=== PATIENT | female | born 1950 | race Caucasian/White ===

== ENCOUNTER → 2016-09-27 | Outpatient (CLI) | payer MEDICARE ==
[~2016-09-27] MED LIST: CLARITIN10 MG PO; DAYPRO600 M1 PO; LEVBID0.375 MG PO; NORGESIC FORTE PO; PRILOSEC20 M1 PO; ROBINUL1 MG; SKELAXIN800 MG PO; ZITHROMAX Z PA250 MG PO
[2016-09-27 08:04] LABS: BASO # 0.1 10*3/uL (0.0-0.1); EOS # 0.1 10*3/uL (0.0-0.4); EOS % 2.1 % (1.0-4.0); HEMATOCRIT 40.5 % (37.0-47.0); HEMOGLOBIN 12.8 g/dl (12.0-16.0); LYMPH # 2.7 10*3/uL (1.3-4.4); LYMPH % 55.8 % (27.0-41.0); MEAN CELL VOLUME 92.7 fl (81.0-99.0); MEAN CORPUSCULAR HGB 29.3 pg (27.0-31.0); MEAN CORPUSCULAR HGB CONC 31.6 g/dl (33.0-37.0); MONO # 0.5 10*3/uL (0.1-1.0); MONO % 9.9 % (3.0-9.0); NEUT # 1.5 10*3/uL (2.3-7.9); PLATELET COUNT AUTOMATED 197 10*3/uL (130-400); RED BLOOD COUNT 4.37 10*6/uL (4.10-5.10); RED CELL DISTRI WIDTH 13.7 % (0-14.5); WHITE BLOOD COUNT 4.8 10*3/uL (4.8-10.8)
[2016-09-27 08:26] LABS: CHLORIDE 111 mmol/L (98-107); POTASSIUM 4.1 mmol/L (3.5-5.1); SODIUM 146 mmol/L (136-145)
[2016-09-27 08:42] LABS: ALBUMIN 3.6 gm/dl (3.1-4.5); ALKALINE PHOSPHATASE 44 U/L (45-117); BILIRUBIN, TOTAL 0.4 mg/dl (0.2-1.0); BUN 19 mg/dl (7-24); CARBON DIOXIDE 28 mmol/L (21-32); CHOLESTEROL 236 mg/dL (<200); EST GLOM FILT AFRICAN AMERICAN > 60 ml/min; GLUCOSE 94 mg/dL (65-99); HDL CHOLESTEROL 78 mg/dl (40-60); LDL CHOLESTEROL 127 mg/dL (9-159); SGOT/AST 9 IU/L (3-35); SGPT/ALT 24 U/L (12-78); TOTAL PROTEIN 6.3 gm/dL (6.4-8.2); TRIGLYCERIDES 154 mg/dl (<150); VLDL CHOLESTEROL 31 mg/dL (6-40)
== END | disposition home or self-care (01) ==
LOC: LAB 07:26
PROVIDERS: Internal Medicine
DX: E78.00 Pure hypercholesterolemia, unspecified (principal); E55.9 Vitamin D deficiency, unspecified

== ENCOUNTER → 2017-03-14 | Outpatient (CLI) | payer MEDICARE | END | disposition home or self-care (01) | LOC: MAMMO 07:11 | DX: Z12.31 Encounter for screening mammogram for malignant neoplasm of breast (principal) ==

== ENCOUNTER → 2017-04-02 | Outpatient (CLI) | payer MEDICARE ==
[2017-04-02 09:39] LABS: BASO # 0.1 10*3/uL (0.0-0.1); BASO % 1.2 % (0.0-1.0); EOS # 0.1 10*3/uL (0.0-0.4); EOS % 1.6 % (1.0-4.0); HEMATOCRIT 43.4 % (37.0-47.0); HEMOGLOBIN 13.8 g/dl (12.0-16.0); LYMPH # 2.7 10*3/uL (1.3-4.4); LYMPH % 53.8 % (27.0-41.0); MEAN CELL VOLUME 90.8 fl (81.0-99.0); MEAN CORPUSCULAR HGB 28.9 pg (27.0-31.0); MEAN CORPUSCULAR HGB CONC 31.8 g/dl (33.0-37.0); MEAN PLATELET VOLUME 10.6 fl (9.6-12.3); MONO # 0.4 10*3/uL (0.1-1.0); MONO % 7.5 % (3.0-9.0); NEUT # 1.8 10*3/uL (2.3-7.9); NEUT % 35.7 % (47.0-73.0); PLATELET COUNT AUTOMATED 226 10*3/uL (130-400); RED BLOOD COUNT 4.78 10*6/uL (4.10-5.10); RED CELL DISTRI WIDTH 13.4 % (0-14.5)
[2017-04-02 10:13] LABS: ALBUMIN 3.8 gm/dl (3.1-4.5); ALKALINE PHOSPHATASE 51 U/L (45-117); BUN 13 mg/dl (7-24); CHLORIDE 106 mmol/L (98-107); CHOLESTEROL 254 mg/dL (<200); CREATININE 0.83 mg/dL (0.55-1.02); HDL CHOLESTEROL 82 mg/dl (40-60); LDL CHOLESTEROL 139 mg/dL (9-159); SGOT/AST 12 IU/L (3-35); SGPT/ALT 32 U/L (12-78); SODIUM 141 mmol/L (136-145); TOTAL PROTEIN 6.9 gm/dL (6.4-8.2); TRIGLYCERIDES 164 mg/dl (<150); VLDL CHOLESTEROL 33 mg/dL (6-40)
== END | disposition home or self-care (01) ==
LOC: LAB 09:24
PROVIDERS: Internal Medicine
DX: E55.9 Vitamin D deficiency, unspecified (principal); E78.00 Pure hypercholesterolemia, unspecified

== ENCOUNTER → 2017-08-08 | Outpatient (CLI) | payer MEDICARE ==
[2017-08-08 07:46] LABS: BASO # 0.1 10*3/uL (0.0-0.1); BASO % 1.1 % (0.0-1.0); EOS # 0.1 10*3/uL (0.0-0.4); EOS % 2.3 % (1.0-4.0); HEMATOCRIT 42.2 % (37.0-47.0); HEMOGLOBIN 13.2 g/dl (12.0-16.0); LYMPH % 57.5 % (27.0-41.0); MEAN CELL VOLUME 91.7 fl (81.0-99.0); MEAN CORPUSCULAR HGB 28.7 pg (27.0-31.0); MEAN CORPUSCULAR HGB CONC 31.3 g/dl (33.0-37.0); MEAN PLATELET VOLUME 10.9 fl (9.6-12.3); MONO # 0.5 10*3/uL (0.1-1.0); MONO % 9.3 % (3.0-9.0); NEUT # 1.6 10*3/uL (2.3-7.9); NEUT % 29.6 % (47.0-73.0); PLATELET COUNT AUTOMATED 206 10*3/uL (130-400); RED CELL DISTRI WIDTH 14.2 % (0-14.5); WHITE BLOOD COUNT 5.3 10*3/uL (4.8-10.8)
[2017-08-08 08:24] LABS: ALBUMIN 3.6 gm/dl (3.1-4.5); BUN 17 mg/dl (7-24); CHLORIDE 108 mmol/L (98-107); POTASSIUM 4.2 mmol/L (3.5-5.1); SODIUM 142 mmol/L (136-145)
[2017-08-08 08:35] LABS: ALKALINE PHOSPHATASE 44 U/L (45-117); CHOLESTEROL 248 mg/dL (<200); CREATININE 0.93 mg/dL (0.55-1.02); HDL CHOLESTEROL 75 mg/dl (40-60); LDL CHOLESTEROL 146 mg/dL (9-159); SGOT/AST 9 IU/L (3-35); SGPT/ALT 27 U/L (12-78); TOTAL PROTEIN 6.5 gm/dL (6.4-8.2); TRIGLYCERIDES 134 mg/dl (<150); VLDL CHOLESTEROL 27 mg/dL (6-40)
== END | disposition home or self-care (01) ==
LOC: LAB 07:21
PROVIDERS: Internal Medicine
DX: E78.00 Pure hypercholesterolemia, unspecified (principal); E55.9 Vitamin D deficiency, unspecified

== ENCOUNTER → 2017-12-10 | Outpatient (CLI) | payer MEDICARE | END | disposition home or self-care (01) | LOC: RAD 14:53 | DX: J43.9 Emphysema, unspecified (principal); Z87.891 Personal history of nicotine dependence ==

== ENCOUNTER → 2018-06-12 | Outpatient (CLI) | payer MEDICARE | END | disposition home or self-care (01) | LOC: MAMMO 09:57 | DX: Z12.31 Encounter for screening mammogram for malignant neoplasm of breast (principal) ==

== ENCOUNTER → 2018-08-07 | Outpatient (CLI) | payer MEDICARE ==
[~2018-08-07] MED LIST changes: +PHAZYME180 MG PO; +RANITIDINE HCL150 M1 PO; +VALTREX500 MG PO; +VITAMIN D400 I1 PO
== END | disposition home or self-care (01) ==
LOC: RAD 11:14
DX: M25.531 Pain in right wrist (principal)

== ENCOUNTER → 2018-12-16 | Outpatient (CLI) | payer MEDICARE | END | disposition home or self-care (01) | LOC: RAD 11:41 | DX: J44.9 Chronic obstructive pulmonary disease, unspecified (principal); K21.9 Gastro-esophageal reflux disease without esophagitis ==

== ENCOUNTER → 2018-12-31 | Outpatient (CLI) | payer MEDICARE ==
--- NOTE | ~2018-12-31 | HM ---
[place], [place] HOLTER MONITOR REPORT NAME: RONAL FUENTES UNIT #: [id number] ROOM: DOCTOR: PATY VANCE MD BIRTHDATE: [birth year] DOS: 01/01/2019 24-HOURS HOLTER MONITOR REPORT DATE OF TESTIN12/31/2018 DATE OF ANALYSIS: 01/01/2019 DATE OF REPORTIN01/01/2019 REASON FOR TESTING: Chest pain and shortness of breath. ATTENDING PHYSICIAN/ORDERING PHYSICIAN: Dr. Lai Mendoza. IMPRESSION: Monitor time 23 hours 59 minutes. The average heart rate was 75 beats per minute. The minimum heart rate was 50 beats per minute, occurring at 4:15 a.m. The maximum heart rate was 130 beats per minute, occurring at 12:58 p.m. There was one ventricular ectopic activity noted. The patient's rhythm included 6 hours and 48 minutes of bradycardia, the lowest single episode of bradycardia occurred at 4:12 a.m. lasting about 23 minutes with a minimum heart rate of 50 beats per minute. The patient's rhythm included 2 hours and 59 minutes of tachycardia. The fastest single episode of tachycardia occurred at 12:58 p.m. lasting about 1 minute and 27 seconds with a maximum heart rate of 130 beats per minute. There were 66 beats of supraventricular ectopic activity was noted, 3 were in one run, 4 were in atrial couplets, 56 were single premature atrial complex, and 3 were in trigeminy. No significant pauses were noted. The patient's symptoms of dizziness and shortness of breath correlated with a sinus tachycardia. No abnormal rhythm was noted with the patient's symptoms of dizziness and shortness of breath. Paty Vance MD CM:HOLTER:HOLTER MONITOR REPORT [id number] PATY VANCE MD
== END | disposition home or self-care (01) ==
LOC: CARD 09:47
DX: K21.9 Gastro-esophageal reflux disease without esophagitis (principal); R07.9 Chest pain, unspecified; R06.02 Shortness of breath

== ENCOUNTER → 2019-02-27 | Day surgery (SDC) | payer MEDICARE ==
[~2019-02-27] VITALS: Ht 147.3 cm; Wt 49.9 kg
[~2019-02-27] MED LIST changes: +PANTOPRAZOLE SO40 MG PO
--- NOTE | ~2019-02-27 | PROC NOTE ---
[place], [place] PROCEDURE NOTE NAME[id number] UNIT #: [id number] ROOM: DOCTOR: NAKUL HERNANDES,GABINO BIRTHDATE: [birth year] DOS: PROCEDURE: Esophagogastroduodenoscopy and biopsy. INDICATION: GERD. An informed consent was obtained from the patient after indication of procedure, the alternatives and potential complications were explained to her. PROCEDURE MEDICATION: Sedation was administered by Anesthesiology Department. Scope used was Olympus diagnostic adult upper endoscope GIF-180, depth of insertion was to the descending duodenum. FINDINGS: After adequate sedation, the patient was placed in left lateral decubitus position, scope was introduced under direct visualization through the upper esophageal sphincter into the esophagus. Esophageal mucosa appeared normal with no evidence of ulcerations or strictures. Lower esophageal sphincter was identified at 36 cm from incisors with normal appearing Z line. Stomach was then intubated. Gastric mucosa inspected. Severe gastritis was seen with no discrete ulcers or active bleeding. A SHAYY test was performed from the gastric antrum and body. Retroflexed views of the fundus showed a grade 1 small hiatal hernia. Pylorus was intubated easily. The duodenal bulb and descending duodenum were within normal range. Scope was then withdrawn after the stomach was decompressed. The patient tolerated the procedure well. IMPRESSION: 1. Small hiatal hernia. 2. Severe gastritis, SHAYY test performed. 3. Normal upper GI tract, otherwise. PLAN: We will review the SHAYY test results, treat the patient accordingly. Office followup will be scheduled in 2-3 weeks. GABINO MOTA MD CM:PROCNOTE:PROCEDURE NOTE 4 35 GABINO MOTA MD
[2019-02-27 08:02] VITALS: BP 158/58
[2019-02-27 09:05] VITALS: BP 144/56
[2019-02-27 09:15] VITALS: BP 138/57
[2019-02-27 09:32] VITALS: BP 148/64
== END | disposition home or self-care (01) ==
LOC: SDC 01-26 10:15
DX: K21.9 Gastro-esophageal reflux disease without esophagitis (principal); K44.9 Diaphragmatic hernia without obstruction or gangrene; K29.70 Gastritis, unspecified, without bleeding; J43.9 Emphysema, unspecified; Z79.899 Other long term (current) drug therapy; Z98.51 Tubal ligation status; Z98.890 Other specified postprocedural states; Z88.5 Allergy status to narcotic agent; Z88.8 Allergy status to other drugs, medicaments and biological substances; Z86.010 Personal history of colon polyps; Z86.73 Personal history of transient ischemic attack (TIA), and cerebral infarction without residual deficits; Z82.49 Family history of ischemic heart disease and other diseases of the circulatory system

== ENCOUNTER → 2019-11-05 | Outpatient (CLI) | payer MEDICARE | LOC: RAD 15:39 | DX: M18.9 Osteoarthritis of first carpometacarpal joint, unspecified (principal); J43.2 Centrilobular emphysema; K21.9 Gastro-esophageal reflux disease without esophagitis; R20.0 Anesthesia of skin ==

== ENCOUNTER → 2021-03-23 | Outpatient (CLI) | payer MEDICARE | END | disposition home or self-care (01) | LOC: MAMMO 10:14 | PROVIDERS: ATTEND Physician Assistant | DX: Z12.31 Encounter for screening mammogram for malignant neoplasm of breast (principal) ==

== ENCOUNTER → 2022-04-06 | Outpatient (CLI) | payer MEDICARE ==
[2022-04-06 14:03] LABS: BASO # 0.1 10*3/uL (0.0-0.1); BASO % 0.8 % (0.0-1.0); EOS # 0.1 10*3/uL (0.0-0.4); EOS % 1.1 % (1.0-4.0); HEMATOCRIT 40.2 % (37.0-47.0); LYMPH # 2.7 10*3/uL (1.3-4.4); LYMPH % 41.4 % (27.0-41.0); MEAN CELL VOLUME 91.2 fl (81.0-99.0); MEAN CORPUSCULAR HGB 28.3 pg (27.0-31.0); MEAN CORPUSCULAR HGB CONC 31.1 g/dl (33.0-37.0); MONO # 0.5 10*3/uL (0.1-1.0); MONO % 7.7 % (3.0-9.0); NEUT # 3.2 10*3/uL (2.3-7.9); NEUT % 48.8 % (47.0-73.0); PLATELET COUNT AUTOMATED 240 10*3/uL (130-400); RED BLOOD COUNT 4.41 10*6/uL (4.10-5.10); RED CELL DISTRI WIDTH 14.9 % (0-14.5); WHITE BLOOD COUNT 6.6 10*3/uL (4.8-10.8)
== END ==
LOC: LAB 13:04
PROVIDERS: ATTEND Internal Medicine Gastroenterology
DX: D64.9 Anemia, unspecified (principal)

== ENCOUNTER → 2022-10-30 | Outpatient (CLI) | payer MEDICARE | END | disposition home or self-care (01) | LOC: RAD 15:52 | PROVIDERS: ATTEND Physician Assistant | DX: R06.09 Other forms of dyspnea (principal); M43.8X4 Other specified deforming dorsopathies, thoracic region ==

== ENCOUNTER → 2022-11-21 | Outpatient (CLI) | payer MEDICARE | END | disposition home or self-care (01) | LOC: CARD 00:16 | PROVIDERS: ATTEND Internal Medicine Cardiovascular Disease | DX: R07.89 Other chest pain (principal); R06.02 Shortness of breath; I10 Essential (primary) hypertension ==

== ENCOUNTER → 2022-12-26 | Outpatient (CLI) | payer MEDICARE | END | disposition home or self-care (01) | LOC: MAMMO 01:34 | PROVIDERS: ATTEND Physician Assistant | DX: Z12.31 Encounter for screening mammogram for malignant neoplasm of breast (principal) ==

== ENCOUNTER → 2023-08-10 | Outpatient (CLI) | payer MEDICARE ==
[~2023-08-10] MED LIST changes: +IOHEXOL 300 MG/ML 100 ML VIAL IV ONE
== END | disposition home or self-care (01) ==
LOC: CT 02:31
PROVIDERS: ATTEND Physician Assistant
DX: J43.2 Centrilobular emphysema (principal); J84.10 Pulmonary fibrosis, unspecified; I25.10 Atherosclerotic heart disease of native coronary artery without angina pectoris; Z90.49 Acquired absence of other specified parts of digestive tract